=== PATIENT | female | born 1990 | race Hispanic/Latino ===

== ENCOUNTER 2023-05-24 10:30 | Outpatient (CLI) | payer OTHER | END 2023-05-24 10:31 | disposition home or self-care (01) | LOC: BURRAD 10:30 | PROVIDERS: ATTEND Nurse Practitioner Family | DX: R06.2 Wheezing (principal); R06.02 Shortness of breath; R91.8 Other nonspecific abnormal finding of lung field | CPT/HCPCS: 71046 ==

== ENCOUNTER 2023-05-25 14:47 | Emergency (ER) | payer OTHER | END 2023-05-25 16:18 | disposition home or self-care (01) | LOC: BURERS 14:47 | DX: H92.02 Otalgia, left ear (principal); H72.92 Unspecified perforation of tympanic membrane, left ear; F17.290 Nicotine dependence, other tobacco product, uncomplicated; Z79.899 Other long term (current) drug therapy | CPT/HCPCS: 99282 ==

== ENCOUNTER 2023-10-25 13:48 | Emergency (ER) | payer OTHER, SELFPAY ==
[2023-10-25] MEDS ORDERED: Ibuprofen 800 MG TAB ONE (14:03)
== END 2023-10-25 14:08 | disposition home or self-care (01) ==
LOC: BURERS 13:48
DX: M94.0 Chondrocostal junction syndrome [Tietze] (principal); I10 Essential (primary) hypertension; F17.290 Nicotine dependence, other tobacco product, uncomplicated